=== PATIENT | male | born 1965 | race Caucasian/White ===

== ENCOUNTER 2021-05-02 02:39 | Emergency (ER) | payer MEDICAID, SELFPAY ==
[2021-05-02 02:46] VITALS: BP 157/110; PULSE 94; RESP 18; TEMP 37.1; O2SAT 96
--- NOTE | 2021-05-02 03:20 | ED.GENADULT ---
HPI - General Adult General Chief complaint: Wound/Laceration Stated complaint: Bite on leg Time Seen by Provider: 05/02/21 03:04 History of Present Illness HPI narrative: Patient 55-year-old gentleman who presents the emergency department with chief complaint of wound on right leg. Patient states that he had ingrown hair several days ago that that was draining and is now healing the patient states that he felt something bite his right lower extremity and then noticed that he had an area of redness and swelling the patient states that he has been applying baking soda to the affected area and had some purulent drainage from the site. The patient states that there is some redness around it Related Data Allergies Allergy/AdvReac Type Severity Reaction Status Date / Time No Known Allergies Allergy Verified 05/02/21 02:50 Review of Systems Review of Systems: A 10 system review of systems was completed on the patient and is negative except for what is stated in the HPI. Nursing and ancillary documentation was reviewed. PMFSH Comments Social history the patient reports that he smokes cigarettes Exam Narrative: GENERAL: Well-appearing, well-nourished, and in no acute distress. HEAD: Normocephalic, atraumatic. EYES: PERRLA and EOMI. ENT: Nares clear, no rhinorrhea or epistaxis. Mucous membranes moist. NECK: Supple. CHEST: Clear to auscultation. No respiratory distress. HEART: Regular rate and rhythm. No murmur heard. Normal peripheral pulses. ABDOMEN: Soft, nontender, nondistended, normal active bowel sounds. EXTREMITIES: Normal range of motion. No edema. There is a half dollar sized area of erythema on the dorsum of the right lower extremity in the mid point of the extremity. There is a small ulceration approximately half a centimeter in diameter there is some purulent drainage from the site there is no fluctuance noted. SKIN: Warm, dry, no rash. NEURO: No focal deficits. Alert and oriented x3. PSYCH: Normal mood and affect. Course Vital Signs Vital signs: Vital Signs Temperature 37.1 C 05/02/21 02:46 Pulse Rate 94 05/02/21 02:46 Respiratory Rate 18 05/02/21 02:46 Blood Pressure 157/110 H 05/02/21 02:46 Pulse Oximetry 96 05/02/21 02:46 Temperature 37.1 C 05/02/21 02:46 Pulse Rate 94 05/02/21 02:46 Respiratory Rate 18 05/02/21 02:46 Blood Pressure 157/110 H 05/02/21 02:46 Pulse Oximetry 96 05/02/21 02:46 Medical Decision Making Vital Signs Vital Signs: Vital Signs Temperature 37.1 C 05/02/21 02:46 Pulse Rate 94 05/02/21 02:46 Respiratory Rate 18 05/02/21 02:46 Blood Pressure 157/110 H 05/02/21 02:46 Pulse Oximetry 96 05/02/21 02:46 Temperature 37.1 C 05/02/21 02:46 Pulse Rate 94 05/02/21 02:46 Respiratory Rate 18 05/02/21 02:46 Blood Pressure 157/110 H 05/02/21 02:46 Pulse Oximetry 96 05/02/21 02:46 Discharge Plan Discharge Clinical Impression: Cellulitis and abscess of right leg Patient Disposition: Home, Self-Care Condition: Stable Instructions: Antibiotic Form, Cellulitis (ED) Prescriptions: New clindamycin HCl 300 mg capsule 300 mg PO Q6H 10 Days Qty: 40 RF: 0 Follow-up/Referrals: PHYSICIAN,PAYING TELLER [Primary Care Provider] - Dk Rankin MD [Physician] - Time of Disposition: 03:25
[2021-05-02] MEDS: CLINDAMYCIN HCL 150 MG CAP 300 MG PO (03:30)
== END 2021-05-02 04:12 | disposition home or self-care (01) ==
PROVIDERS: Emergency Provider Emergency Medicine
DX: L03.115 Cellulitis of right lower limb (principal)
CPT/HCPCS: 99283; A9270